=== PATIENT | male | born 2005 | race Caucasian/White ===

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

== ENCOUNTER 2024-06-03 15:38 | Outpatient (CLI) | payer BC, SELFPAY ==
[2024-06-03 18:22] LABS: Alanine Aminotransferase 18 U/L (12-78); Albumin Level 4.9 g/dl (3.5-5.0); Albumin/Globulin Ratio 2.2 (1.1-1.8); Alkaline Phosphatase 60 U/L (38-126); Anion Gap 12.9 mEq/L (5-15); Aspartate Amino Transferase 23 U/L (17-59); Bilirubin,Total 0.3 mg/dl (0.2-1.3); Blood Urea Nitrogen 15 mg/dl (9-20); Calcium 9.2 mg/dl (8.4-10.2); Carbon Dioxide 25 mmol/L (22.0-30.0); Chloride 107 mmol/L (98-107); Estimated Glomerular Filt Rate 94 ml/min (>60); GFR (African American) 114 ML/MIN (>60); Globulin 2.2 g/dL (1.3-3.2); Glucose 94 mg/dl (74-100); Potassium 4.9 mmoL/L (3.5-5.1); Sodium 140 mmol/L (136-145); Total Protein,Serum 7.1 g/dl (6.3-8.2)
[2024-06-03 19:44] LABS: C-Reactive Protein 0.5 mg/L (0-4)
[2024-06-05 21:13] LABS: QuantiFERON-TB Gold Plus Negative (Negative)
== END 2024-06-03 23:59 | disposition home or self-care (01) ==
LOC: LAB 15:43
PROVIDERS: PCP Family Medicine; Visit Provider Family Medicine
DX: R19.8 Other specified symptoms and signs involving the digestive system and abdomen (principal)
CPT/HCPCS: 36415; 80053; 86140; 86480

== ENCOUNTER 2024-06-07 16:12 | Outpatient (CLI) | payer BC, SELFPAY ==
[2024-06-11 10:08] LABS: Calprotectin, Fecal 16 ug/g (0-120)
== END 2024-06-07 23:59 | disposition home or self-care (01) ==
LOC: LAB.DROPOF 16:13
PROVIDERS: PCP Family Medicine; Visit Provider Family Medicine
DX: R19.8 Other specified symptoms and signs involving the digestive system and abdomen (principal)
CPT/HCPCS: 83993